=== PATIENT | female | born 1965 | race Two or more races ===

== ENCOUNTER → 2019-10-30 09:31 | Outpatient (CLI) | payer MEDICARE ==
[2015-12-10 06:10] VITALS: BMI 24.6
[~2019-10-30 09:31] MED LIST: COZAAR50 MG PO; LANTUS INSULIN10 ML SC; PRAVACHOL20 MG PO
== END | disposition home or self-care (01) ==
LOC: D.US 09:31
PROVIDERS: ATTEND Family Medicine
DX: N92.6 Irregular menstruation, unspecified (principal)

== ENCOUNTER → 2020-07-29 07:59 | Outpatient (CLI) | payer MEDICARE ==
[2015-12-10 06:10] VITALS: BMI 24.6
== END | disposition home or self-care (01) ==
LOC: D.CT 07:59
PROVIDERS: ATTEND Family Medicine
DX: S00.93XA Contusion of unspecified part of head, initial encounter (principal)

== ENCOUNTER → 2021-02-24 18:09 | Outpatient (CLI) | payer MEDICARE ==
[2015-12-10 06:10] VITALS: BMI 24.6
== END | disposition home or self-care (01) ==
LOC: D.MAMMO 09:45
PROVIDERS: ATTEND Family Medicine
DX: Z12.31 Encounter for screening mammogram for malignant neoplasm of breast (principal)

== ENCOUNTER 2021-03-08 18:41 | Observation (INO) | payer MEDICARE ==
[~2021-03-08] VITALS: Ht 165.1 cm; Wt 78.9 kg
--- NOTE | ~2021-03-08 | HEMODYNAMI ---
PATIENT:CHIP GRAY MEDICAL RECORD: [id number] : 65 [id number] ADMISSION DATE: 03/08/21 Generatedon:115:22 Patient name: CHIP GRAY Patient #: [id number] SSN: [id number] : 1965 Date of study: 03/10/2021 Page: Of Hemodynamic Procedure Report Patient Data Patient Demographics Procedure consent was obtained First Name: CHIP Gender: Female Last Name: ISAAC : 1965 Middle Initial: CARLOS Age: 55 year(s) Patient #: [id number] Race: Other SSN: [id number] Additional ID: [id number] Contact details [address]: [address] [place] [address] State: [place] City: [place] Zip code: [address] Admission Admission Data Admission Date: 03/08/2021 Admission Time: 20:57 Arrival Date: 03/10/2021 Arrival Time: 0:00 Admit Source: Other Insurance Payor: Medicare Room #: D.2119 [facility] #: [id number] Height (in.): 65 BSA: 1.86 (m2) Height (cm.): 165.1 BMI: 28.95 (kg/m2) Weight (lbs.): 173.99 Weight (kg.): 78.92 Lab Results Lab Result Date: 03/10/2021 Lab Result Time: 0:00 Biochemistry Name Units Result Min Max BUN mg/dl 9 --(*---)-- 7 18 Creatinine mg/dl 0.7 --(*---)-- 0.6 1.3 eGFR ml/min 90 --(*---)-- 90 120 NONAFRICAN CBC Name Units Result Min Max Hematocrit % 39.1 -*(----)-- 42 54 Hemoglobin g/dl 12.7 -*(----)-- 13.5 17.5 Procedure Procedure Types Cath Procedure Diagnostic Procedure [facility] w/Coronaries Sedation Charges Moderate Sedation 10-24 minutes Procedure Description Procedure Date Procedure Date: 03/10/2021 Procedure Start Time: 15:12 Procedure End Time: 15:20 Procedure Staff Name Function Rc Jurado MD Performing Physician Rena Jones RT Monitor Sue Rodríguez RN Nurse Kelly Manning RT Scrub Procedure Data Cath Procedure Fluoroscopy Diagnostic fluoroscopy Total fluoroscopy Time: 1.2 time: 1.2 min min Diagnostic fluoroscopy Total fluoroscopy dose: 436 dose: 436 mGy mGy Contrast Material Contrast Material Type Amount (ml) Isovue 300 49 Entry Location Entry Primary Successful Side Size Upsize Upsize Entry Closure Quiroga ccessful Closure Location (Fr) 1 (Fr) 2 (Fr) Remarks Device Remarks Radial Right 6 Fr Mechanical artery Short Compression Estimated blood loss: 5 ml Diagnostic catheters Device Type Used For End Catheter Placement DIAGNOSTIC [place] 110cm 5 Multi-vessel Fr catheter ([id number]) Angiography Procedure Complications No complications Procedure Medications Medication Administration Route Dosage Oxygen etCO2 Nasal cannula 2 l/min Lidocaine 2% added to field 20 Heparin Flush Bag added to field 2 bags (1000units/500ml NS) 0.9% NaCl I.V. 100 ml/hr Versed I.V. 1 mg Fentanyl I.V. 50 mcg Versed I.V. 1 mg Fentanyl I.V. 50 mcg Hemodynamics Rest BSA: 1.86 (m2) HGB: 12.7 (g/dl) O2 Consumption: Estimated: 198.09 (ml/min) O2 Co nsumption indexed: Estimated:106.5 (ml/min/m) Heart Rate: 97 (bpm) Pressure Samples Time Site Value (mmHg) Purpose Heart Use Rate(bpm) 15:15 LV 105/11,105 Snapshot 96 15:15 AO 121/90(106) Pullback 89 Gradients Valve Time Site Site 2 Mean SEP/DFP Peak To Heart Use 1 (mmHg) (sec/min) Peak Rate (mmHg) (bpm) Aortic 15:15 LV AO 20 13 89 121/90(106) Calculations Valve P-P Mean Valve Index Valve Source Name Gradient Area Flow (cm2) Aortic 20 20 Snapshots Pre Cath Intra NCS Post Cath Vital Signs Time Heart Resp SPO2 etCO2 NIBP (mmHg) Rhythm Pain Sedation Rate (ipm) (%) (mmHg) Status Level (bpm) 14:51:40 92 15 93 0 176/91(149) NSR 0 (11) 10(A) , No pain 14:55:31 92 17 95 43.5 161/81(120) NSR 0 (11) 10(A) , No pain 14:59:50 91 21 98 42 193/97(154) NSR 0 (11) 10(A) , No pain 15:04:14 94 15 99 42.7 200/100(150) NSR 0 (11) 10(A) , No pain 15:08:05 94 17 99 42.8 191/104(150) NSR 0 (11) 10(A) , No pain 15:12:29 96 13 99 44.2 204/107(152) NSR 0 (11) 10(A) , No pain 15:16:19 103 25 99 40.5 173/94(127) NSR 0 (11) 10(A) , No pain 15:20:08 91 17 99 41.3 162/90(120) NSR 0 (11) 10(A) , No pain Medications Time Medication Route Dose Verified Delivered Reason Notes Eff ectiveness by by 14:55:45 Oxygen etCO2 2 Rc Buffie used for Nasal l/min St Angel Rodríguez raw silk grader cannula 15:01:54 Lidocaine 2% added 20ml Rc Rc for local to vial [facility] anesthetic field MD LAWLER 15:02:00 Heparin Flush added 2 Rc Rc used for Bag to bags [facility] procedure (1000units/500ml field MD LAWLER NS) 15:02:10 0.9% NaCl I.V. 100 Rc Buffie Per ml/hr St Angel Rodríguez RN physician 15:02:45 Versed I.V. 1 mg Rc Buffie for AdrienAngel Rodríguez RN sedation 15:02:52 Fentanyl I.V. [address] Taraie for mcg [address] Angel Rodríguez RN sedation 15:10:54 Versed I.V. 1 mg Rc Buffie for AdrienAngel Rodríguez RN sedation 15:10:58 Fentanyl I.V. [address] Buff[address] for mcg [address] Angel Rodríguez RN sedation Procedure Log Time Note 14:25:33 Informed consent obtained and on chart 14:37:48 Diagnostic Cath Status : Urgent 14:38:04 Admit Source: Other 14:38:06 ACC Patient presents with Unstable Angina CCS Anginal Class 2--Slight limitation of ordinary activity. 14:38:09 Procedure Status Urgent Heart Cath (IP). 14:38:11 Rena Jones RT(R) sent for patient. Start room use. 14:38:13 Time tracking: Regular hours (M-F 7:00 - 5:00) 14:38:18 Plan of Care:Hemodynamics will remain stable., Cardiac rhythm will remain stable., Comfort level will be maintained., Respiratory function will remain adequate., Patient/ family verbilizes understanding of procedure., Procedure tolerated without complication., Recovers from procedure without complications.. 14:39:26 Lab Result : eGFR NONAFRICAN 90 ml/min 14:39:26 Lab Result : Hemoglobin 12.7 g/dl 14:39:26 Lab Result : BUN 9 mg/dl 14:39:26 Lab Result : Creatinine 0.7 mg/dl 14:39:27 Lab Result : Hematocrit 39.1 % 14:39:34 Arrival Date: 03/10/2021 12:00:00 AM 14:39:37 Patient Height : 65 inches 14:39:41 Patient Weight : 173.99 lbs 14:40:37 Insurance Payor : Medicare 14:40:55 Alarms reviewed by R. N. 14:40:55 Sharps counted by scrub and verified by R.N. 14:40:57 Lab results completed and on chart. 14:41:22 Stress Test: yes; abnormal ANTERIOR, APICAL 14:50:29 Patient received from Med II to [facility] 2 Alert and oriented. Tansferred to table in Supine position. 14:50:30 Warm blankets applied, and frankie hugger turned on for patient comfort. 14:50:30 Correct patient and procedure confirmed by team. 14:50:31 ECG and BP/O2 sat monitors applied to patient. 14:50:32 Full Disclosure recording started 14:50:32 Vital chart was started 14:52:52 Baseline sample Acquired. 14:52:57 Rhythm: sinus tachycardia 14:53:05 H&P Date Dictated: 03/10/2021 New H&P dictated by physician.. 14:53:12 Pre-procedure instructions explained to patient. 14:53:12 Pre-op teaching completed and patient verbalized understanding. 14:53:14 Family unavailable. 14:53:15 Patient NPO since Midnight. 14:53:17 Is the patient allergic to Iodine/contrast media? No. 14:53:18 Was the patient premedicated? Yes 14:53:19 Is patient on blood thinner?Yes 14:53:23 ACC The patient was administered the following blood thiners within the last 24 hours: Eliquis 14:53:32 Patient diabetic? Yes. 14:54:40 If diabetic: On Metformin? Yes 14:54:43 Previous problem with sedation/anesthesia? No ? 14:54:44 Snore? Yes 14:54:45 Sleep apnea? No 14:54:46 Deviated septum? No 14:54:47 Opens mouth fully? Yes 14:54:47 Sticks out tongue? Yes 14:55:11 Pt brought to labor relations analyst via bed, felt warm to touch. Temp is 99.[address] Jurado notified. 14:55:13 Airway obstruction? Yes RECENT PNUEMONIA 14:55:17 Dentures? Yes OUT 14:55:32 Pre procedure: right dorsailis pedis pulse 2+ Normal; easily identifiable; not easily obliterated 14:55:34 Pre procedure: left dorsailis pedis pulse 2+ Normal; easily identifiable; not easily obliterated 14:55:36 Patient pain scale 0/10 ?. 14:55:43 IV patent on arrival in left forearm with 0.9% NaCl at [facility]. 14:55:45 Oxygen 2 l/min etCO2 Nasal cannula was administered by Sue Rodríguez RN; used for procedure; Verbal order read back and verified. 14:55:49 Right Radial & Right Groin area was prepped with chlora-prep and draped in sterile fashion 14:55:50 Physician arrived 14:55:50 --------ALL STOP TIME OUT------ 14:55:51 Final Timeout: patient, procedure, and site verified with staff and physician. All members of the team are in agreement. 14:55:53 Right Radial & Right Groin site verified by team. 14:55:57 Fire Safety Assessment: A--An alcohol-based skin anteseptic being used preoperatively., C--Open oxygen or nitrous oxide is being used., D--An ESU, laser, or fiber-optic light is being used. 14:56:11 Physical assessment completed. ASA score P 2 - A patient with mild systemic disease as per Rc Jurado MD. 14:56:19 1) 90+ Normal kidney functon but urine findings or structural abnormalities or genetic trait point to kidney disease. 14:56:23 Maximum allowable contrast dose (3.7 X eGFR X 0.75)250 ml. 14:56:32 Sedation plan: IV Moderate Sedation Medication:Versed, Fentanyl 14:56:38 Use device set Radial Dx or PCI 14:56:39 ACIST Syringe (21809) opened to sterile field. 14:56:40 Medline Cath Pack ([id number]) opened to sterile field. 14:56:40 Bag Decanter (2002S) opened to sterile field. 14:56:40 ACIST Hand Control (57427) opened to sterile field. 14:56:40 ACIST Manifold (32771) opened to sterile field. 14:56:41 Tegaderm 4 x 4 (1626W) opened to sterile field. 14:56:41 MBrace Wrist Support (098554521) opened to sterile field. 14:56:43 EMERALD Guide Wire (092-482) opened to sterile field. 14:56:44 SHEATH 6FR RAIN (0042611) opened to sterile field. 14:58:32 If on Metformin: Last Dose? 03/08/2021 15:01:32 Zero performed for pressure channel P1 15:01:54 Lidocaine 2% 20ml vial added to field was administered by Rc Jurado MD; for local anesthetic; Verbal order read back and verified. 15:02:00 Heparin Flush Bag (1000units/500ml NS) 2 bags added to field was administered by Rc Jurado MD; used for procedure; Verbal order read back and verified. 15:02:10 0.9% NaCl 100 ml/hr I.V. was administered by Sue Rodríguez RN; Per physician; Verbal order read back and verified. 15:02:45 Versed 1 mg I.V. was administered by Sue Rodríguez RN; for sedation; Verbal order read back and verified. 15:02:52 Fentanyl 50 mcg I.V. was administered by Sue Rodríguez RN; for sedation; Verbal order read back and verified. 15:07:14 Zero performed for pressure channel P1 15:10:54 Versed 1 mg I.V. was administered by Sue Rodríguez RN; for sedation; Verbal order read back and verified. 15:10:58 Fentanyl 50 mcg I.V. was administered by Sue Rodríguez RN; for sedation; Verbal order read back and verified. 15:11:54 Procedure started. 15:12:01 Local anesthetic to right radial artery with Lidocaine 2% by Rc Jurado MD.INITIAL ACCESS ONLY 15:12:20 A 6 Fr Short sheath was inserted into the Right Radial artery 15:13:53 A DIAGNOSTIC [place] 110cm 5 Fr catheter (572832) was advanced over the wire and used for Multi-vessel Angiography. 15:15:36 LV hemodynamics recorded. 15:15:37 LV gram done using ARENAS 15:15:39 Injector settings: Ml/sec: 5, Volume: 15, 15:15:44 EF : 55 % 15:15:53 LCA angiography performed. 15:16:19 Injector settings: Ml/sec: 3, Volume: 6, 15:16:33 Catheter removed. 15:17:04 RCA angiography performed. 15:17:07 Injector settings: Ml/sec: 3, Volume: 6, 15:17:28 Catheter removed. 15:17:58 ZEPHYR REGULAR TR BAND (174761) opened to sterile field. 15:18:06 Sheath removed intact; hemostasis achieved with Mechanical Compression to the Right Radial artery. 15:18:07 Procedure ended.(Physican Out) 15:18:29 Fluoroscopy time 01.20 minutes. 15:18:33 Fluoroscopy dose: 436 mGy 15:18:33 Flurop Dose total: 436 15:18:37 Dose Area Product 14060 mGy/cm. 15:18:41 Contrast amount:Isovue 300 49ml. 15:18:44 Maximum allowable dose exceeded? No. 15:18:45 Sharps counted by scrub and verified by R.N. 15:18:51 Starford band inflated with 10cc of air. 15:18:53 Insertion/operative site no bleeding no hematoma. 15:18:58 Post right radial artery:stable 15:18:59 Post Procedure Pulses reassessed and unchanged 15:19:02 Post procedure rhythm: unchanged. 15:19:04 Estimated blood loss: 5 ml 15:19:06 Post procedure instruction explained to patient.Patient verbalizes understanding. 15:19:07 Patient needs reinforcement of post procedure teaching. 15:19:31 Procedure type changed to Cath procedure, Diagnostic procedure, LHC, [facility] w/Coronaries, Sedation Charges, Moderate Sedation 10-24 minutes 15:19:32 Procedure and supply charges have been captured, reviewed, submitted and are correct. 15:19:37 Procedure Complication : No complications 15:19:39 Vital chart was stopped 15:19:42 [facility] Findings: mild to moderate CAD (<70%) 15:19:43 Operative report dictated upon procedure completion. 15:19:44 See physician's report for complete and final results. 15:19:46 Report given to Med II. 15:19:56 Patient transfered to Med II with Stretcher. 15:19:59 Procedure ended. 15:19:59 Full Disclosure recording stopped 15:21:06 End room use (Document Last) 15:21:57 End room use (Document Last) 15:22:32 End room use (Document Last) Device Usage Item Name Manufacture Quantity Catalog Hospital Part Current Minima l Lot# / Number Charge Number Stock Stock Serial# Code ACIST Acist 1 28037 [id number] 477916 [id number] 20 Syringe Medical (28185) Systems Inc Medline Medline 1 [id number] 760044 46085 805753 5 Cath Pack ([id number]) Bag Microtek 1 2001S 811855 69602 775952 5 Decanter Medical Inc. () ACIST Hand Acist 1 48182 392861 062768 113746 5 Control Medical (27381) Systems Inc ACIST Acist 1 52781 335275 974570 190639 5 Manifold Medical (46891) Systems Inc Tegaderm 4 3M 1 1626W 926526 264338 783611 5 x 4 (1626W) MBrace Advanced 1 140-0250-00 817297 52824 565849 5 Wrist Vascular Support Dynamics ([id number]) EMERALD Cardinal 1 502-455 546179 804240 340227 5 Guide Wire Health (792-455) SHEATH 6FR Cardinal 1 4284877 366353 2151294 984455 5 [facility] (7296319) DIAGNOSTIC Terumo 1 40-5013 472866 681057 452564 5 [place] 110cm 5 Fr catheter (611330) ZEPHYR Cardinal 1 210064 077005 4897394 602697 5 REGULAR TR Health BAND (360507) Signature Audit [place] Stage Time Signature Unsigned Intra-Procedure 03/10/2021 Rena Jones 3:21:57 PM RT(R) Intra-Procedure 03/10/2021 Sue Rodríguez RN 3:22:32 PM Intra-Procedure 03/10/2021 Rc Allred 3:22:49 PM Angel LAWLER Signatures Performing Physician : Signature : Rc Jurado MD Date : Time : Monitor : Rena Jones RT Signature : Date : Time : Nurse : Sue Rodríguez RN Signature : Date : Time : [place] [address] [place] [address]
[2021-03-08] MEDS ORDERED: PRAVACHOL40 MG PO (19:10)
[2021-03-08] MEDS ORDERED: PEPCID AC20 MG PO (19:11)
[2021-03-08] MEDS ORDERED: LEVEMIR FL100 UNIT/1 (19:11)
[2021-03-08] MEDS ORDERED: LISINOPRIL2.5 MG (19:11)
[2021-03-08] MEDS ORDERED: CLONIDINE HCL0.1 MG PO (19:11)
[2021-03-08] MEDS ORDERED: METFORMIN HCL500 M1 (19:11)
[2021-03-08 19:55] LABS: BASOPHILS 0.6 % (0-2); EOSINOPHILS 9.9 % (0-7); HEMATOCRIT 37.9 % (36.0-48.0); HEMOGLOBIN 12.3 g/dL (12-16); IMMATURE GRANULOCYTES 0.3 % (0-5); LYMPHOCYTE ABS# 3.26 10x3/uL (1.18-3.74); LYMPHOCYTES 30.3 % (15-50); MCH 26.4 pg (26.0-34.0); MCHC 32.5 g/dL (31.0-37.0); MCV 81.3 fL (80.0-100.0); MEAN PLATELET VOLUME 11.6 fL (7.4-10.4); MONOCYTES 6.5 % (2-11); NEUTROPHIL ABS# 5.64 10x3/uL (1.56-6.13); NEUTROPHILS 52.4 % (40-80); RBC 4.66 10x6/uL (4.00-5.40); WBC 10.8 10x3/uL (4.8-10.8)
[2021-03-08 19:57] LABS: PLATELET COUNT 287 10x3/uL (130-400)
[2021-03-08 20:04] LABS: INR 1.02 (0.85-1.17); PROTIME 12.4 SECONDS (11.6-15.0)
[2021-03-08 20:05] LABS: APTT 27.8 SECONDS (22.8-39.4)
[2021-03-08 20:11] LABS: CALC OSMOLALITY 275 mosm/kg (275-300); CALCIUM 8.9 mg/dL (8.5-10.1); CARBON DIOXIDE 29.4 mmol/L (21.0-32.0); CHLORIDE - SERUM 100 mmol/L (98-107); CREATININE - SERUM 0.7 mg/dL (0.6-1.3); POTASSIUM - SERUM 4.2 mmol/L (3.5-5.1); SODIUM 135 mmol/L (136-145); UREA NITROGEN 10 mg/dL (7-18); eGFR NON AFRICAN AMERICAN > 90 mL/min (90-120)
[2021-03-08 20:12] LABS: GLUCOSE 221 mg/dL (74-106)
[2021-03-08 20:27] LABS: ALBUMIN 3.1 g/dL (3.4-5.0); ALKALINE PHOSPHATASE 92 U/L (30-120); ALT (SGPT) 23 U/L (10-68); BILIRUBIN - TOTAL 0.19 mg/dL (0.2-1.3); CREATINE KINASE 50 UL (21-215); MAGNESIUM - SERUM 1.3 mg/dL (1.8-2.4); PROTEIN - SERUM 7.5 g/dL (6.4-8.2)
[2021-03-08 20:30] VITALS: BP 179/86
[2021-03-08 20:36] LABS: TROPONIN-I < 0.017 ng/mL (0.000-0.060)
[2021-03-08 20:39] LABS: THYROID STIMULATING HORMONE 4.32 uIU/mL (0.36-3.74)
[2021-03-08] MEDS ORDERED: LISINOPRIL20 MG PO (21:51)
[2021-03-08 22:06] VITALS: BP 179/79; BMI 29.0
--- NOTE | 2021-03-08 22:13 | NUR ---
RECIEVED REPORT FROM ER. ARRIVED TO FLOOR ON STRETCHER. ALERT ANSD ORIENTED X4. UP AD CAMERON TO B/R. DENIES ANY NEEDS AT THIS TIME. ASSESSMENT COMPLETED.
[2021-03-09 05:03] VITALS: BP 156/72
[2021-03-09 08:04] VITALS: BP 148/82
--- NOTE | 2021-03-09 08:38 | NUR ---
AM MEDS GIVEN PER EMAR, PT AWAKE AND ALERT, SITTING UP IN BED ON CELL PHONE. PT ASKS ABOUT HER MD MAKING ROUNDS, EDUCATION GIVEN. PT DENIES ANY FURTHER NEEDS. CLWR.
--- NOTE | 2021-03-09 09:41 | NUR ---
NEW MEDICATION GIVEN TO PT PER ORDER. PT AWARE AND HAS SPOKEN TO DEEPA GREGG REGARDING THE NEW MED. PT SPEAKING WITH XRGEOVANY REGARDING STRESS TEST. PT APPEARS ANXIOUS REGARDING THE HOSPITAL STAY AND TESTS. EDUCATION AND COMFORT GIVEN. PT STATES APPRECIATION , FAMILY AT BEDSIDE. CLWR.
[2021-03-09 12:47] VITALS: Ht 165.1 cm; Wt 78.9 kg
--- NOTE | 2021-03-09 19:52 | NUR ---
RECIEVED UP IN BED WITH EYES OPEN AND TV ON. ALERT AND ORIENTED X4. UP AD CAMERON TO BR. DENIES ANY NEEDS AT THIS TIME.
[2021-03-09 20:00] VITALS: BP 164/77
[2021-03-10] VITALS: BP 132/69
[2021-03-10 08:23] VITALS: BP 149/77
[2021-03-10 09:30] LABS: BASOPHILS 0.6 % (0-2); EOSINOPHILS 11.3 % (0-7); HEMATOCRIT 39.1 % (36.0-48.0); HEMOGLOBIN 12.7 g/dL (12-16); IMMATURE GRANULOCYTES 0.3 % (0-5); LYMPHOCYTE ABS# 2.26 10x3/uL (1.18-3.74); LYMPHOCYTES 33.5 % (15-50); MCH 26.1 pg (26.0-34.0); MCHC 32.5 g/dL (31.0-37.0); MCV 80.3 fL (80.0-100.0); MEAN PLATELET VOLUME 11.8 fL (7.4-10.4); MONOCYTES 6.2 % (2-11); NEUTROPHIL ABS# 3.25 10x3/uL (1.56-6.13); NEUTROPHILS 48.1 % (40-80); PLATELET COUNT 281 10x3/uL (130-400); RBC 4.87 10x6/uL (4.00-5.40)
[2021-03-10 09:38] LABS: WBC 6.8 10x3/uL (4.8-10.8)
[2021-03-10 09:44] LABS: ALT (SGPT) 20 U/L (10-68); CALC OSMOLALITY 281 mosm/kg (275-300); CALCIUM 8.5 mg/dL (8.5-10.1); CARBON DIOXIDE 29.1 mmol/L (21.0-32.0); CHLORIDE - SERUM 102 mmol/L (98-107); CHOL - HDL RATIO 4.2 ratio (2.3-4.1); CHOLESTEROL, TOTAL 199 mg/dL (0-200); CREATININE - SERUM 0.7 mg/dL (0.6-1.3); HDL CHOLESTEROL 48 mg/dL (32-96); LDL CHOLESTEROL 110 mg/dL (0-100); LDL-HDL RATIO 2.3 ratio (1.5-3.5); POTASSIUM - SERUM 4.1 mmol/L (3.5-5.1); SODIUM 136 mmol/L (136-145); TRIGLYCERIDE 207 mg/dL (30-200); UREA NITROGEN 9 mg/dL (7-18); eGFR NON AFRICAN AMERICAN > 90 mL/min (90-120)
[2021-03-10 09:45] LABS: GLUCOSE 297 mg/dL (74-106)
--- NOTE | 2021-03-10 15:35 | NUR ---
PT BACK TO ROOM FROM ACREAGE REPORTER ON BED. RESTING QUIETLY BUT AROUSE TO VOICE. WRIST BAND IN PLACE, NO BLEEDING.
[2021-03-10 20:00] VITALS: BP 171/72
[2021-03-10 22:48] VITALS: BP 171/72
--- NOTE | 2021-03-10 23:17 | NUR ---
PT TR BAND REMOVED AT 2000. NO FURTER BLEEDING SEEN AT RIGHT WRIST SITE. PT A/O X4. RR E/U. NO S/S OF DISTRESS AT THIS TIME. BED LOW CALL LIGHT WITHIN REACH. WILL CONTINUE TO MONITOR
[2021-03-11] VITALS: BP 171/72
--- NOTE | 2021-03-11 01:33 | NUR ---
DC'D PT'S LEFT THUMB IV PT STATES IT WAS VERY PAINFUL. PT HAS LFA IV PATENT AND SALINE LOCKED. WILL CONTINUE TO MONITOR.
[2021-03-11 04:00] VITALS: BP 188/80
--- NOTE | 2021-03-11 04:23 | NUR ---
I have reviewed this patient and I concur with the Shift Assessment completed by the Licensed Practical Nurse today this shift.
--- NOTE | 2021-03-11 04:54 | NUR ---
PT COMPLAINS OF HEADACHE.PT BP-180/72. PRN APRESOLINE GIVEN. WILL CONTINUE TO MONITOR.
[2021-03-11] MEDS ORDERED: ELIQUIS2.5 MG PO (07:53)
[2021-03-11] MEDS ORDERED: NORVASC5 MG PO (07:54)
[2021-03-11 08:14] VITALS: BP 140/67
--- NOTE | 2021-03-11 10:32 | NUR ---
IV VAND TELEMETRY DCD. DC PLANS GIVEN. UNDERSTANDING VOICED. ESCORTED TO CAR BY W/C.
--- NOTE | 2021-03-11 13:04 | NUR ---
Nutrition Follow-up: Good appetite/PO intake; ate ~75% of breakfast this AM. Denies N/V/C/D. Discussed carb consistent diet; questions answered. Cath yesterday. D/c today. Diet: Diabetic PO intake: 75-100% No new wt; last wt: 174# (03/09) Last BM: 03/11 Labs noted: Glu 304 (03/10) Meds noted: Pepcid, Humulin -Provided education/written information on carb consistent diet; questions answered. Pt may also benefit from OP DM education. -RD will follow up within 5-7 days if pt still admitted.
--- NOTE | 2021-03-14 16:09 | OP ---
PATIENT NAME: CHIP GRAY MEDICAL RECORD: [id number] :65 LOCATION:D.M2 D.2119 ADMISSION DATE:03/08/21 SURGEON: TA ASHRAF MD DATE OF OPERATION: 03/10/2021 PROCEDURE: Left heart catheterization, selective coronary angiography, right radial approach. CATHETERS: Radial sheath. Hanson catheter. The procedure was well tolerated. The patient was returned to the chambers. Sheath removed. TR band was placed. FINDINGS: Left ventriculography in 30-degree ARENAS view; normal wall motion and normal systolic function. CORONARY ANATOMY: LEFT MAIN: Left main free of disease. LAD: Free of disease in the diagonal system. CIRCUMFLEX: Free of disease in the marginal system. RIGHT CORONARY ARTERY: Dominant right artery, gives rise to PDA, free of disease. IMPRESSION: Normal left ventricular systolic function, normal coronary anatomy, false positive stress testing. TRANSINT:[id number] Voice Confirmation ID: [id number] DOCUMENT ID: [id number] TA ASHRAF MD at 1609 CC: [id number] DICTATION DATE: 03/10/21 1525 HEMATOLOGY SPECIALIST: 03/10/21 1700 DIS IN 03/11/21 [id number] [place] [address]
== END 2021-03-11 10:33 | disposition home or self-care (01) ==
LOC: D.ER 18:41 → D.M2 20:57 → OBSVTIME 20:58 → D.M2 03-11 10:33
PROVIDERS: Family Medicine; Internal Medicine Interventional Cardiology; ADMIT Family Medicine; ATTEND Family Medicine
DX: R07.9 Chest pain, unspecified (principal); I10 Essential (primary) hypertension; E11.40 Type 2 diabetes mellitus with diabetic neuropathy, unspecified; Z79.84 Long term (current) use of oral hypoglycemic drugs; R51.9 Headache, unspecified; K21.9 Gastro-esophageal reflux disease without esophagitis; I65.23 Occlusion and stenosis of bilateral carotid arteries; E78.5 Hyperlipidemia, unspecified